=== PATIENT | female | born 1990 | race Caucasian/White ===

== ENCOUNTER 2019-08-29 12:54 | Emergency (ER) | payer OTHER ==
[~2019-08-29] VITALS: Ht 162.6 cm; Wt 122.5 kg
[2019-08-29] MEDS ORDERED: MORPHINE SULFATE 2 MG/ML SYR 1ML IM STA (13:29)
[2019-08-29] MEDS ORDERED: SILVER SULFADIAZINE 50GM CREAM TOP STA (13:30)
--- NOTE | 2019-08-29 13:37 | Emergency Department Note ---
History of Present Illnes History of Present Illness Chief Complaint: Extremity Trauma/Pain History of Present Illness This is a 29 year old female with cc burn to the left hand at work from [employer] . Onset (how long ago): hour(s) (1) Location: left hand Quality: sharp Radiation: Denies non-radiation, Denies back, Denies neck, Denies extremity, Denies abdomen, Denies periumbilical, Denies flank, Denies proximal, Denies distal, Denies other Severity: moderate Onset quality: sudden Duration (how long): hour(s) (1) Timing of current episode: constant Progression: worsening Chronicity: new Context: Denies recent illness, Denies recent surgery, Denies recent immobilization, Denies recent travel, Denies trauma/injury, Denies new medications, Denies hx of DVT/PE, Denies non-compliance w/ medications, Denies other Relieving factors: none Exacerbating factors: none Associated symptoms: Reports other Treatments prior to arrival: none Past Medical/Family History Physician Review I have reviewed the patient's past medical and family history. Any updates have been documented here. Past Medical History Past Medical History: None Past Surgical History: None Review of Systems Review of Systems Constitutional: Reports no symptoms EENTM: Reports no symptoms Cardiovascular: Reports no symptoms Respiratory: Reports no symptoms Gastrointestinal: Reports no symptoms Genitourinary: Reports no symptoms Musculoskeletal: Reports no symptoms Integumentary: Reports no symptoms Neurological: Reports no symptoms Psychological: Reports no symptoms Endocrine: Reports no symptoms Hematological/Lymphatic: Reports no symptoms Physical Exam Related Data Vital signs reviewed: Yes Physical Exam CONSTITUTIONAL Constitutional: Present well-developed, Present well-nourished HENT HENT: Present normocephalic, Present atraumatic, Present oropharynx clear/moist, Present nose normal HENT L/R: Present left ext ear normal, Present right ext ear normal EYES Eyes: Reports PERRL, Reports conjunctivae normal NECK Neck: Present ROM normal PULMONARY Pulmonary: Present effort normal, Present breath sounds normal CARDIOVASCULAR Cardiovascular: Present regular rhythm, Present heart sounds normal, Present capillary refill normal, Present normal rate GASTROINTESTINAL Abdominal: Present soft, Present nontender, Present bowel sounds normal GENITOURINARY Genitourinary: Present exam deferred SKIN Skin: Present warm, Present dry MUSCULOSKELETAL Musculoskeletal: Present ROM normal, Present other (secnd degree burn left 4th and 5th finger) NEUROLOGICAL Neurological: Present alert, Present oriented x 3, Present no gross motor or sensory deficits PSYCHOLOGICAL Psychological: Present mood/affect normal, Present judgement normal Assessment & Plan Medical Decision Making MDM burn Reassessment Reassessment time: 13:36 Reassessment better Assessment & Plan Final Impression: (1) Second degree burn of left hand Depart Disposition: HOME, SELF-CARE JENN HERMOSILLO MD Aug 29, 2019 13:37
[2019-08-29] MEDS ORDERED: SILVADENE20 GM TOP (13:38)
[2019-08-29] MEDS ORDERED: TYLENOL WITH C1 EACH PO (13:40)
[2019-08-29] MEDS ORDERED: KEFLEX500 MG PO (13:40)
[2019-08-29] MEDS ORDERED: MORPHINE SULFATE INJ 4 MG/ML INJ 1ML ONE (14:03)
== END 2019-08-29 14:59 | disposition home or self-care (01) ==
LOC: FSED 12:54
DX: T23.232A Burn of second degree of multiple left fingers (nail), not including thumb, initial encounter (principal); T65.891A Toxic effect of other specified substances, accidental (unintentional), initial encounter; Y99.0 Civilian activity done for income or pay
CPT/HCPCS: 16020; 99283; J2270